=== PATIENT | male | born 2000 | race Caucasian/White ===

== ENCOUNTER 2024-02-28 10:47 | Outpatient (CLI) | payer BC ==
[~2024-02-28 10:47] MED LIST: Iopamidol 300 61% 100 ML VIAL FS ONE
== END 2024-02-28 10:48 | disposition home or self-care (01) ==
LOC: CSHCT 10:47
PROVIDERS: ATTEND Specialist
DX: D37.030 Neoplasm of uncertain behavior of the parotid salivary glands (principal); K11.9 Disease of salivary gland, unspecified
CPT/HCPCS: 70492; Q9967